=== PATIENT | male | born 1990 | race American Indian/Alaskan Native ===

== ENCOUNTER 2020-11-04 20:33 | Emergency (ER) | payer SELFPAY ==
[2020-11-04 21:20] VITALS: BP 123/74
[2020-11-04 23:27] LABS: Basophils % (Auto) 0.6 % (0.0-1.8); Eosinophils % (Auto) 0.4 % (0.0-4.3); Hematocrit 41.4 % (35.5-45.6); Lymphocytes # (Auto) 1.5 K/mm3 (1.2-5.4); Lymphocytes % (Auto) 21.7 % (13.4-35.0); Mean Corpuscular HGB Conc 34 % (32-34); Mean Corpuscular Volume 87 fl (84-94); Monocytes # (Auto) 0.7 K/mm3 (0.0-0.8); Monocytes % (Auto) 10.9 % (0.0-7.3); Platelet Count 291 K/mm3 (140-440); Red Blood Count 4.74 M/mm3 (3.65-5.03); Red Cell Distribution Width 13.4 % (13.2-15.2)
[2020-11-04 23:35] LABS: Alanine Aminotransferase 12 units/L (7-56); BUN/Creatinine Ratio 11; Blood Urea Nitrogen 11 mg/dL (9-20); Hemolysis Index 2
[2020-11-04 23:39] LABS: INR 1.13 (0.87-1.13)
[2020-11-04 23:40] LABS: Partial Thromboplastin Time 46.3 Sec. (24.2-36.6)
== END 2020-11-04 22:00 | disposition left against medical advice (07) ==
LOC: ED 20:33
DX: K62.89 Other specified diseases of anus and rectum (principal); Z53.21 Procedure and treatment not carried out due to patient leaving prior to being seen by health care provider
CPT/HCPCS: 36415; 80053; 83690; 85025; 85610; 85730

== ENCOUNTER 2021-10-24 07:58 | Emergency (ER) | payer SELFPAY ==
--- NOTE | 2021-10-24 11:01 | Emergency Department Report ---
ED Male HPI - General Chief complaint: Urogenital-Male Stated complaint: PAIN GENTIAL AREA Time Seen by Provider: 10/24/21 10:38 Source: patient Mode of arrival: Ambulatory Limitations: No Limitations - History of Present Illness Initial comments: Patient is a 31-year-old male that presents to the emergency room today with pain to his scrotum and penis. He states that he recently moved here from [place] and had unprotected sex with a new male partner. He states that prior to that encounter he had not had sex for over a month. He stated that something felt off about the man that he was with. 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 Patient was the recipient of penetration. Patient states that 2 days after that encounter he noticed that he had what he thought was jock itch. He used [id number] jock itch treatment but woke up the next day and found that his scrotum and penis were adhered to his undergarments. Today he woke up and he was in so much pain he had a neighbor help him to the car to get to the emergency room. He endorses yellow penile discharge. Patient denies fever. He endorses chills. Patient denies abdominal pain. Patient denies back pain. He has no rash. No oral or ocular lesions. Patient is ambulatory to triage but he is walking with a wide stance because his scrotum and penis are so painful. Patient denies history of STD/STI MD Complaint: testicle swelling, groin pain -: Gradual, days(s) Location: penis, right testicle, left testicle Radiation: none Severity: moderate Quality: sharp Consistency: constant Improves with: none Worsens with: none denies other symptoms, swelling, rash. denies: discharge, mass, urinary retention, blood in urine, dysuria, fever, nausea/vomiting, incontinence - Related Data Sexually active: Yes Previous Rx's Medication Instructions Recorded Last Taken Type Acyclovir 400 mg PO Q8H #30 10/24/21 Unknown Rx Allergies Allergy/AdvReac Type Severity Reaction Status Date / Time No Known Allergies Allergy Verified 11/04/20 21:17 ED Review of Systems ROS: Stated complaint: PAIN GENTIAL AREA Other details as noted in HPI Comment: All other systems reviewed and negative ED Past Medical Hx - Past Medical History Previous Medical History?: Yes Additional medical history: hypoglycema - Surgical History Past Surgical History?: Yes Additional Surgical History: cyst removal from left arm and groin - Family History Family history: no significant - Social History Smoking Status: Never Smoker Substance Use Type: None - Medications Home Medications: Home Medications Medication Instructions Recorded Confirmed Last Taken Type Acyclovir 400 mg PO Q8H #30 10/24/21 Unknown Rx ED Physical Exam - General Limitations: No Limitations General appearance: alert, in no apparent distress - Head Head exam: Present: atraumatic, normocephalic - Eye Eye exam: Present: normal appearance - ENT ENT exam: Present: mucous membranes moist - Neck Neck exam: Present: normal inspection - Respiratory Respiratory exam: Present: normal lung sounds bilaterally. Absent: respiratory distress - Cardiovascular Cardiovascular Exam: Present: regular rate, normal rhythm. Absent: systolic murmur, diastolic murmur, rubs, gallop - GI/Abdominal GI/Abdominal exam: Present: soft, normal bowel sounds - Rectal Rectal exam: Present: deferred - Extremities Exam Extremities exam: Present: normal inspection - Back Exam Back exam: Present: normal inspection - Neurological Exam Neurological exam: Present: alert, oriented X3 - Psychiatric Psychiatric exam: Present: normal affect, normal mood - Skin Skin exam: Present: warm, dry, normal color, other. Absent: rash ED Course Vital Signs 10/24/21 08:16 Temperature 98.5 F Pulse Rate 103 H Respiratory 15 Rate Blood Pressure 135/92 [Right] O2 Sat by Pulse 94 Oximetry ED Medical Decision Making - Radiology Data Radiology results: report reviewed, image reviewed See report - Medical Decision Making Vital Signs 10/24/21 08:16 Temperature 98.5 F Pulse Rate 103 H Respiratory 15 Rate Blood Pressure 135/92 [Right] O2 Sat by Pulse 94 Oximetry On exam patient has scrotal and penile swelling. These areas are covered in discrete round painful lesions. There is discharge noted in patient's undergarments. There are no lesions noted around the anus. There are no oral lesions. The wounds are wet in appearance. They are weeping but with no purulent drainage. I have ordered a urinalysis, urine GC and I have sent swabs for herpes. Patient has been given 1 gram of Rocephin, 1 gm po azithromycin, 2 g of po Flagyl. I will discharge him on treatment for genital herpes. Patient was given a [place] for pain. However, that did not relieve his pain. Have given him 3 mg of IV morphine. That seems to have relieved his pain. Ultrasound was normal. I have discussed safe sex with patient. Patient will discharge home with urology follow-up. He verbalizes understanding of discharge plan of care including diet, activities, medications and safe sex. Patient being discharged home with acyclovir for 10 days. He has been given urology and PCP follow-up. Patient understands that we have sent cultures and that we need a contact number for him. I have asked him to validate his number with registration. Patient being discharged home with discharge plan of care including diet, activity, medications and follow-up. We have also discussed safe sex practices. - Differential Diagnosis STI/STD/UTI/testicular abscess/testicular torsion/epididymitis Critical care attestation.: If time is entered above; I have spent that time in minutes in the direct care of this critically ill patient, excluding procedure time. ED Disposition Clinical Impression: Concern about STD in male without diagnosis Disposition: 01 HOME / SELF CARE / HOMELESS Is pt being admited?: No Does the pt Need Aspirin: No Condition: Stable Instructions: Safe Sex Additional Instructions: safe sex all partners need treated meds as ordered today FOLLOW UP WITH UROLOGY [facility] RE[facility]ERRALS BELOW we have sent cultures - we will call you with results Prescriptions: Acyclovir 400 mg PO Q8H #30 Referrals: GAVIN BRIDGES MD [Primary Care Provider] - 3-5 Days TWYLA COX MD [Staff Physician] - 3-5 Days Time of Disposition: 15:26
[2021-10-24] MEDS ORDERED: HYDROcodone/ACETAMINOPHEN 5-325 MG TAB PO ONE (11:14)
--- NOTE | 2021-10-24 12:18 | Ultrasound Report ---
ULTRASOUND SCROTUM INDICATION / CLINICAL INFORMATION: testicular pain. COMPARISON: None available. Imaging is limited. The exam was stopped at the patient's request. FINDINGS -- RIGHT: TESTIS: Size = 4 cm. - Appearance: No significant abnormality. - Cyst / Mass: None. - Color Doppler Flow: No significant abnormality. EPIDIDYMIS: No significant abnormality. HYDROCELE: None. VARICOCELE: None demonstrated. FINDINGS -- LEFT: TESTIS: Size = 4.6 cm. - Appearance: No significant abnormality. - Cyst / Mass: None. - Color Doppler Flow: No significant abnormality. EPIDIDYMIS: No significant abnormality. HYDROCELE: None. VARICOCELE: None demonstrated. ADDITIONAL FINDINGS: None. IMPRESSION: 1. There is arterial flow in both testicles. There is no evidence of torsion. No abnormal fluid colle ctions are seen. No mass lesions are seen. Signer Name: Domenico Man MD Signed: 10/24/2021 12:13 PM Workstation Name: [id number]
[2021-10-24] MEDS ORDERED: SODIUM CHLORIDE 0.9% 1000 ML 1,000 ML IV ONE (15:10)
[2021-10-24] MEDS ORDERED: cefTRIAXone/NS 1 GM/50 ML 1 GM/50 ML BAG IV ONE (15:15)
[2021-10-24] MEDS ORDERED: metroNIDAZOLE 500 MG TAB PO ONE (15:16)
[2021-10-24] MEDS ORDERED: AZITHROMYCIN 1 GM ORAL PWDR PACKET PO ONE (15:16)
[2021-10-24] MEDS: MORPHINE 4 MG/1 ML INJ IV ONE ×2 (15:56→16:33)
[2021-10-24 18:38] LABS: Bilirubin,Urine NEG (Negative); Blood,Urine SM (Negative); Color,Urine Yellow (Yellow); Mucus,Urine FEW /HPF
[2021-10-24 19:50] VITALS: BP 133/81
== END 2021-10-24 19:56 | disposition home or self-care (01) ==
LOC: ED 07:58
DX: Z20.2 Contact with and (suspected) exposure to infections with a predominantly sexual mode of transmission (principal); Z79.899 Other long term (current) drug therapy
CPT/HCPCS: 36415; 81001; 87086; 87255; 87591; 93975; 96365; 96375; 99284; J0696; J2270; J7030; Q0162

== ENCOUNTER 2021-12-31 19:57 | Emergency (ER) | payer SELFPAY ==
[2021-12-31 20:41] VITALS: BP 128/84
[2022-01-01] MEDS ORDERED: SODIUM CHLORIDE 0.9% 1000 ML 1,000 ML IV ONE (04:01)
[2022-01-01] MEDS ORDERED: cefTRIAXone/NS 1 GM/50 ML 1 GM/50 ML BAG IV ONE (04:01)
[2022-01-01] MEDS ORDERED: AZITHROMYCIN 1 GM ORAL PWDR PACKET PO ONE (04:01)
[2022-01-01] MEDS ORDERED: MORPHINE 4 MG/1 ML INJ IV ONE (04:20)
[2022-01-01 04:52] LABS: Hematocrit 36.4 % (35.5-45.6); Hemoglobin 12.1 gm/dl (11.8-15.2); Mean Corpuscular HGB Conc 33 % (32-34); Mean Corpuscular Volume 83 fl (84-94); Platelet Count 407 K/mm3 (140-440); Red Blood Count 4.37 M/mm3 (3.65-5.03); Red Cell Distribution Width 14.1 % (13.2-15.2)
[2022-01-01 05:04] LABS: INR 0.97 (0.87-1.13); Partial Thromboplastin Time 41.7 Sec. (24.2-36.6)
--- NOTE | 2022-01-01 05:04 | Emergency Department Report ---
ED General Adult HPI - General Chief complaint: Urogenital-Male Stated complaint: TESTICLE AND ANAL PAIN Time Seen by Provider: 01/01/22 04:00 Source: patient Mode of arrival: Ambulatory Limitations: No Limitations - History of Present Illness Initial comments: Patient is a 31-year-old male with history of HIV who presents for rectal pain with complaint of yellow discharge along with watery yellow discharge penile , Patient endorses dysuria urgency and frequency. Patient denies hematuria. There has been 2 episodes of nausea vomiting. There is no shortness of breath or wheezing. Patient does confirm anal intercourse. However he advises partner does not have problems or symptoms. Severity scale (0 -10): 9 - Related Data Previous Rx's Medication Instructions Recorded Last Taken Type Acyclovir 400 mg PO Q8H #30 10/24/21 Unknown Rx Doxycycline Monohydrate 100 mg PO BID 7 Days #14 tab 01/01/22 Unknown Rx Ibuprofen [Motrin 800 MG tab] 800 mg PO Q8HR PRN #30 tablet 01/01/22 Unknown Rx Allergies Allergy/AdvReac Type Severity Reaction Status Date / Time No Known Allergies Allergy Verified 11/04/20 21:17 ED Review of Systems ROS: Stated complaint: TESTICLE AND ANAL PAIN Other details as noted in HPI Constitutional: denies: chills, fever Eyes: denies: eye pain, eye discharge, vision change ENT: denies: ear pain, throat pain Respiratory: denies: cough, shortness of breath, wheezing Cardiovascular: denies: chest pain, palpitations Endocrine: no symptoms reported Gastrointestinal: abdominal pain, nausea. denies: diarrhea, constipation, hematemesis, melena, hematochezia Genitourinary: urgency, dysuria, frequency, discharge Musculoskeletal: denies: back pain, joint swelling, arthralgia Skin: denies: rash, lesions Neurological: denies: headache, weakness, paresthesias, vertigo Psychiatric: denies: anxiety, depression Hematological/Lymphatic: denies: easy bleeding, easy bruising ED Past Medical Hx - Past Medical History Additional medical history: hypoglycema - Surgical History Additional Surgical History: cyst removal from left arm and groin - Social History Smoking Status: Unknown if ever smoked Substance Use Type: None - Medications Home Medications: Home Medications Medication Instructions Recorded Confirmed Last Taken Type Acyclovir 400 mg PO Q8H #30 10/24/21 Unknown Rx Doxycycline Monohydrate 100 mg PO BID 7 Days #14 tab 01/01/22 Unknown Rx Ibuprofen [Motrin 800 MG tab] 800 mg PO Q8HR PRN #30 tablet 01/01/22 Unknown Rx ED Physical Exam - General Limitations: No Limitations General appearance: alert, in no apparent distress - Head Head exam: Present: normocephalic, normal inspection - Eye Eye exam: Present: EOMI Pupils: Present: normal accommodation - ENT ENT exam: Present: mucous membranes moist - Neck Neck exam: Present: normal inspection, tenderness, full ROM. Absent: lymphadenopathy, thyromegaly - Respiratory Respiratory exam: Present: normal lung sounds bilaterally. Absent: respiratory distress, wheezes, stridor - Cardiovascular Cardiovascular Exam: Present: regular rate, normal rhythm, normal heart sounds. Absent: systolic murmur, diastolic murmur, rubs, gallop - GI/Abdominal GI/Abdominal exam: Present: soft, normal bowel sounds. Absent: distended, tenderness, guarding, rebound, rigid, bruit, hernia - Rectal Rectal exam: Present: deferred - exam: Present: other (Mild penile swelling with swelling and yellow-white discharge no open lesions no open sores no rash or lesions.) - Extremities Exam Extremities exam: Present: normal inspection, full ROM, normal capillary refill. Absent: tenderness - Back Exam Back exam: Present: normal inspection, full ROM. Absent: CVA tenderness (R), CVA tenderness (L) - Neurological Exam Neurological exam: Present: alert, oriented X3, CN II-XII intact, normal gait - Expanded Neurological Exam Expanded Patient oriented to: Present: person, place, time Speech: Present: fluid speech - Psychiatric Psychiatric exam: Present: normal affect, normal mood - Skin Skin exam: Present: warm, dry, intact, normal color. Absent: rash ED Course Vital Signs 12/31/21 20:09 Temperature 99.4 F Pulse Rate 126 H Respiratory 18 Rate Blood Pressure 128/84 O2 Sat by Pulse 96 Oximetry ED Medical Decision Making - Lab Data Result diagrams: 01/01/22 04:17 01/01/22 04:17 - Radiology Data Radiology results: report reviewed, image reviewed CT ABDOMEN AND PELVIS WITH CONTRAST INDICATION / CLINICAL INFORMATION: Rectal pain x 4 days, discharge, fever. TECHNIQUE: Axial CT images were obtained through the abdomen and pelvis after IV contrast. All CT scans at this location are performed using CT dose reduction for ALARA by means of automated exposure control. COMPARISON: None available. FINDINGS: LOWER CHEST: No significant abnormality of the imaged chest. LIVER: No focal lesion. No acute findings. GALLBLADDER / BILE DUCTS: No significant abnormality. Biliary ducts grossly unremarkable. SPLEEN: No significant abnormality. PANCREAS: No significant abnormality. ADRENALS: No significant abnormality. KIDNEYS/URETERS: No stones or hydronephrosis. No solid renal lesion. STOMACH / DUODENUM / SMALL BOWEL: The stomach, duodenum, and small bowel demonstrate no significant abnormality. No specific abnormality of the mesentery demonstrated. COLON: Asymmetric wall thickening of the rectum above the level of the anal verge is demonstrated measuring up to 2.3 cm in thickness. In addition, within the perirectal and presacral fat, there are numerous surrounding lymph nodes which are enlarged. These measure up to 10 mm- 16 short axis. Additional enlarged inguinal lymph nodes are noted bilaterally measuring up to 16 mm short axis. APPENDIX: No significant abnormality. PERITONEUM: No free air or free fluid are present within the abdomen or pelvis. LYMPH NODES: With exception of the above described lymph nodes within the perirectal fat, no adenopathy clearly is demonstrated within the abdomen or pelvis. AORTA / ARTERIES: No significant abnormality. IVC / VEINS: No significant abnormality. URINARY BLADDER: No significant abnormality. REPRODUCTIVE ORGANS: No significant abnormality. ADDITIONAL ABDOMINAL/PELVIC FINDINGS: None. SKELETAL SYSTEM: No significant abnormality. IMPRESSION: 1. Asymmetric wall thickening of the lower rectum as detailed with perirectal and presacral adenopathy. Primary differential considerations would include proctitis, neoplasm not entirely excluded. No adjacent abscess formation. Signer Name: Haris Miller II, MD Signed: 01/01/2022 6:08 AM Workstation Name: [id number] Transcribed By: KEKE Dictated By: HARIS MILLER II, MD Electronically Authenticated By: HARIS MILLER II, MD Signed Date/Time: 01/01/22 06 DD/ 06 TD/TT: Critical care attestation.: If time is entered above; I have spent that time in minutes in the direct care of this critically ill patient, excluding procedure time. ED Disposition Clinical Impression: Proctitis, STI (sexually transmitted infection) Disposition: HOME / SELF CARE / HOMELESS Is pt being admited?: No Does the pt Need Aspirin: No Condition: Stable Instructions: Proctitis, Safe Sex Additional Instructions: Take medications as prescribed, follow-up with your doctor in 2 to 3 days. Return to emergency department should symptoms worsen. Prescriptions: Doxycycline Monohydrate 100 mg PO BID 7 Days #14 tab Ibuprofen [Motrin 800 MG tab] 800 mg PO Q8HR PRN #30 tablet PRN Reason: Pain Referrals: TANYA STONER MD [Staff Physician] - 3-5 Days Forms: Work/School Release Form(ED) Time of Disposition: 06:31
[2022-01-01 05:06] LABS: Alanine Aminotransferase 9 units/L (7-56); Albumin 3.6 g/dL (3.9-5); BUN/Creatinine Ratio 13; Blood Urea Nitrogen 12 mg/dL (9-20); Calcium 9.1 mg/dL (8.4-10.2); Hemolysis Index 7
--- NOTE | 2022-01-01 06:12 | Cat Scan Report ---
CT ABDOMEN AND PELVIS WITH CONTRAST INDICATION / CLINICAL INFORMATION: Rectal pain x 4 days, discharge, fever. TECHNIQUE: Axial CT images were obtained through the abdomen and pelvis after IV contrast. All CT sc ans at this location are performed using CT dose reduction for ALARA by means of automated exposure c ontrol. COMPARISON: None available. FINDINGS: LOWER CHEST: No significant abnormality of the imaged chest. LIVER: No focal lesion. No acute findings. GALLBLADDER / BILE DUCTS: No significant abnormality. Biliary ducts grossly unremarkable. SPLEEN: No significant abnormality. PANCREAS: No significant abnormality. ADRENALS: No significant abnormality. KIDNEYS/URETERS: No stones or hydronephrosis. No solid renal lesion. STOMACH / DUODENUM / SMALL BOWEL: The stomach, duodenum, and small bowel demonstrate no significant a bnormality. No specific abnormality of the mesentery demonstrated. COLON: Asymmetric wall thickening of the rectum above the level of the anal verge is demonstrated nehemias suring up to 2.3 cm in thickness. In addition, within the perirectal and presacral fat, there are num erous surrounding lymph nodes which are enlarged. These measure up to 10 mm-16 short axis. Additional enlarged inguinal lymph nodes are noted bilaterally measuring up to 16 mm short axis. APPENDIX: No significant abnormality. PERITONEUM: No free air or free fluid are present within the abdomen or pelvis. LYMPH NODES: With exception of the above described lymph nodes within the perirectal fat, no adenopat hy clearly is demonstrated within the abdomen or pelvis. AORTA / ARTERIES: No significant abnormality. IVC / VEINS: No significant abnormality. URINARY BLADDER: No significant abnormality. REPRODUCTIVE ORGANS: No significant abnormality. ADDITIONAL ABDOMINAL/PELVIC FINDINGS: None. SKELETAL SYSTEM: No significant abnormality. IMPRESSION: 1. Asymmetric wall thickening of the lower rectum as detailed with perirectal and presacral adenopath y. Primary differential considerations would include proctitis, neoplasm not entirely excluded. No ad jacent abscess formation. Signer Name: Neftaly Miller II, MD Signed: 01/01/2022 6:08 AM Workstation Name: [id number]
[2022-01-01 06:23] LABS: Basophils % (Manual) 0 % (0.0-1.8); Eosinophils % (Manual) 0 % (0.0-4.3); Total Cells Counted 100
[2022-01-01 06:24] LABS: Platelet Estimate Consistent w Auto; RBC Morphology Normal
== END 2022-01-01 10:14 | disposition home or self-care (01) ==
LOC: ED 19:57
DX: K62.89 Other specified diseases of anus and rectum (principal); Z20.2 Contact with and (suspected) exposure to infections with a predominantly sexual mode of transmission; Z79.899 Other long term (current) drug therapy
CPT/HCPCS: 36415; 74177; 80053; 85007; 85025; 85610; 85730; 96365; 96375; 99284; J0696; J2270; J7030; Q9967